=== PATIENT | female | born 1980 | race Caucasian/White ===

== ENCOUNTER 2017-01-22 11:16 | Emergency (ER) | payer MEDICARE, MEDICAID ==
[~2017-01-22] VITALS: Ht 172.7 cm; Wt 62.7 kg
[~2017-01-22 11:16] MED LIST: BUPR150T6 PO; FLUD0.1T PO; NADO20TA PO; NORE-101 PO
[2017-01-22 11:21] VITALS: BP 112/72; PULSE 75; RESP 15; O2SAT 97
[2017-01-22] MEDS ORDERED: 0.9% Sodium Chloride 1,000 ML IV ONE (11:33)
--- NOTE | 2017-01-22 11:33 | ED.REPORT ---
HPI-Neurologic Deficit Date of Service January 22, 2017 ED Provider: The patient is a 36 year old female with history of POTS, neuroleptic malignant syndrome, prior brain surgeries, and atrial fibrillation s/p cardiac ablations, who was brought to the emergency department by her mother for stroke-like symptoms. The patient spoke to her mother at 0930 today and was normal. At 1030 she noticed pressure behind her right eye that started to move down on the right side of her face with associated numbness. She then noticed numbness to the entire right-side of her body. Her mother reports the patients speech is slurred more than normal. Nursing Notes Stated Complaint: RIGHT SIDE NUMBNESS Chief Complaint: Neuro Symptoms/ Deficits Nursing Notes Reviewed: Yes Allergies: Coded Allergies: adhesive tape (Verified Allergy, Unknown, 01/22/17) metoclopramide (Verified Allergy, Unknown, 01/22/17) Scheduled Bupropion HCl (Bupropion-XL) 150 Mg Tab.er.24h 150 MG PO BID Lamotrigine ER (Lamotrigine ER) Unknown Strength Tab.er.24 Unknown Dose PO DAILY Noreth A-Et Estra/Fe Fumarate (Loestrin Fe 1.5-30 Tablet) 1 Each Tablet 1 EACH PO DAILY Propranolol ER (Propranolol ER) Unknown Strength Cap.sa.24h Unknown Dose PO BID General Time Seen by Provider: 11:30 Chief Complaint Other (numbness on the right side) Hx Obtained From: Patient, Other family... Arrived By: Walk-in Sudden in Onset?: Yes Onset Occurred: 1 - 4 hours ago (1030) Symptom Duration: Waxes and wanes Progression Since Onset: Constant Location: : Head Quality: Pressure Severity: Current: Mild Severity: Maximum: Mild Recent Healthcare: No recent doctor visit, No recent hospitalization Similar Sx Previous: No Risk Factors TPA Administration/Criteria Stroke Thrombolytic Therapy : TPA Considered: Yes Neurologist Contacted: At bedside, Yes Disc Risk/Benefit/Alternatives: Yes Consent Obtained: Patient Intensive Monitoring Performed: Yes TPA Administered Intravenously: Yes Complications Encountered: No Inclusion Criteria: Dx acute ischemic CVA, Measurable neuro deficit, Onset < 3hr before Tx, 18 years or older NIH Stroke Scale Level of Consciousness: Alert and responsive (0) Ask Month & Age: Both questions right (0) Open/Close Eyes/Hand Materials Management Clerk: Performs both tasks (0) Horizontal EO Movements: None (0) Visual Leyva: No visual loss (0) Facial Palsy: Normal symmetry (0) Right Arm Motor Drift (10s): No drift 10 sec (0) Left Arm Motor Drift (10s): No drift 10 sec (0) Right Leg Motor Drift (5s): No drift 5 sec (0) Left Leg Motor Drift (5s): No drift 5 sec (0) Limb Ataxia FNF/Heel-Rodriguez: Ataxia in 1 limb (1) (right arm) Sensation (Arms/Legs/Face): Pinprick less sharp (1) Language Aphasia: No aphasia, normal (0) Dysarthria: Slurring intelligible (1) Extinction/Inattention: No exctinct/inattent (0) NIHSS Score: 3 Time NIHSS Performed: 11:38 Date NIHSS Performed: January 22, 2017 Past Medical History Past Medical History Notes: Been seen at [facility] Past Medical History Hx of syncope "Spongy tissue in brain" Myclonus Essential tremor "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" Dysautonomia - POTS Dysarthria Neuroleptic malignant syndrome PT reports hx of atrial fibrillation s/p ablation Past Surgical History Brain surgery x2 for tremors and spasmodic movement Cardiac ablation x 2 Abdominal surgery to remove scar tissue Family History Noncontributory Smoking History Never Smoker Social History Alcohol Use: Denies alcohol use Drug Use: THC Other Social History: Good social support, Local resident Ambulatory Status Independent Review of Systems Eyes: Reports: Eye pain right Neurologic: Reports: Headache, Numbness, Slurred speech Complete sys rev & neg: except as marked. Physical Exam Initial Vital Signs Vital Signs (First) Date Time Temp Pulse Resp B/P Pulse Ox O2 Delivery O2 Flow Rate FiO2 01/22/17 11:21 36.6 75 15 112/72 97 Room Air Initial VS: Reviewed ENT: Mucous membranes moist, Conjunctiva normal, No scleral icterus Neck: Supple, Non-tender, Full range of motion Abdomen / GI: Soft, Non-tender, No guarding, No rebound, No distention Extremities: Vascular intact, Neuro intact Skin: Warm, Dry, No cyanosis Psychiatric: Mood/affect normal, Behavior normal, Normal thought content General/Constitutional: Awake, Alert Head / Eyes: Atraumatic, Normocephalic, PERRL, EOMI Respiratory / Chest: Atraumatic, Breath sounds NL, Breath sounds = bilat, No respiratory distress, No rales, No rhonchi, No wheezing Cardiovascular: Heart rate NL, Regular rhythm, Heart sounds NL, No gallop, No murmurs, No rubs, Peripheral circulation NL Neurologic: Oriented X3 Speech: Positive: Slurred See NIH stroke scale above, score: 3 for slurred speech, right arm ataxia, and paraesthesia. Interpretation & Diagnostics PROCEDURE: CT ANGIO HEAD AND NECK IMPRESSION: 1. No evidence of intracranial hemorrhage. 2. Normal intracranial vasculature. 3. Normal cervical vasculature, both bifurcations appear normal. Both vertebral arteries are patent and combine to form a normal appearing basilar artery. Dictated by: Santana Rivas M.D. on 01/22/2017 at 13:05 Lab Results Interpretation Result Diagram: 01/22/17 1145 01/22/17 1145 Test 01/22/17 11:45 White Blood Count 5.3th/mm3 (3.8-10.1) Red Blood Count 4.24mil/mm3 (3.90-5.20) Hemoglobin 12.3g/dL (12.0-15.6) Hematocrit 38.0% (35.0-46.0) Mean Corpuscular Volume 89.6fL (81-100) Mean Corpuscular Hemoglobin 29.0pg (27.0-35.0) Mean Corpuscular Hemoglobin Concent 32.4% (32.0-37.0) Red Cell Distribution Width 13.0% (12.3-15.4) Platelet Count 251bil/L (150-400) Neutrophils (%) (Auto) 45.0% (40-74) Lymphocytes (%) (Auto) 42.8% (14-46) Monocytes (%) (Auto) 9.7% (4-12) Eosinophils (%) (Auto) 1.7% (0-5) Basophils (%) (Auto) 0.6% (0-3) Prothrombin Time 10.3sec (8.1-12.5) Prothromb Time International Ratio 0.96ratio Activated Partial Thromboplast Time 26.8sec (22.8-33.0) Sodium Level 140mEq/L (134-144) Potassium Level 4.6mEq/L (3.5-5.2) Chloride Level 103mEq/L (97-108) Carbon Dioxide Level 25mmol/L (18-29) Blood Urea Nitrogen 21mg/dL (6-20) Creatinine 0.92mg/dL (0.57-1.00) Estimat Glomerular Filtration Rate 100mL/min (>59) Glucose Level 94mg/dL (60-99) Calcium Level 9.4mg/dL (8.5-10.1) Total Bilirubin 0.5mg/dL (0.0-1.2) Aspartate Amino Transf (AST/SGOT) 12U/L (0-50) Alanine Aminotransferase (ALT/SGPT) 11U/L (0-32) Alkaline Phosphatase 36U/L (25-150) Troponin T < 0.010ug/L (0.0-0.011) Total Protein 6.4g/dL (6.4-8.4) Albumin 4.1g/dL (3.4-5.0) Hold Sierra Top Tube Received (Received) ECG Interpretation ECG Interpretation: Sinus rhythm with a rate of 71 Time: 11:51 Interpreted by: ED physician X-Ray Chest Interpretation Chest Xray Interpretation: IMPRESSION: Stable chest. No acute cardiopulmonary process is evident. Dictated by: Tung Barba M.D. on 01/22/2017 at 11:14 Interpretation / Wet Read by: Interpret - Radiologist CT Head Interpretation IMPRESSION: 1. No intracranial hemorrhage. No acute intracranial abnormality. This study fulfills neurological imaging criteria for inclusion or exclusion of acute stroke therapies based on available published neurological imaging guidelines. Dictated by: Santana Rivas M.D. on 01/22/2017 at 11:46 Study: Head CT no contrast Interpretation / Wet Read by: Interpret - Radiologist Re-Eval/Medical Decision Med Decision/Clinical Course Patient presents with slurred speech ataxia in the right arm and paresthesia of the right side of her body of acute onset. Certainly this could represent stroke or a stroke mimic. Her initial NIH stroke scale was 3. Given her history of gamma knife, [facility] was consulted and states that that is not a contraindication to TPA and recommended TPA if the patient was agreeable.. After lab evaluation it is clear there is no contraindication identified to TPA. Risks and benefits were discussed with the patient at length who agreed to IV TPA. IV TPA was given. She did not have any identifiable adverse event while in the ER. Ultimately she will be transferred to [facility] as we do not have on-call neurology at our hospital today. Source of Hx: Old records, Family Re-Evaluation/Progress #1: Time of Eval: 11:56 Re-Evaluation/Progress Note: Discussed neurology consult and head CT results, and plan for TPA with the patient and her mother. Went through TPA exclusions. Re-Evaluation/Progress #2: Time of Eval: 12:15 Re-Evaluation/Progress Note: The patient is stable. Re-Evaluation/Progress #3: Time of Eval: 12:56 Re-Evaluation/Progress Note: Rechecked the patient. She is resting comfortably. Re-Evaluation/Progress #4: Time of Eval: 12:59 Re-Evaluation/Progress Note: The patient complains of a sudden increase of pain in her right-sided headache. She now describes the pain as "sharp" and rates it at a 7/10. Re-Evaluation/Progress #5: Time of Eval: 13:30 Re-Evaluation/Progress Note: The patient is aware of plan for transfer to [facility]. Re-Evaluation/Progress #6: Time of Eval: 14:19 Re-Evaluation/Progress Note: Rechecked the patient. Let her know she is accepted at [facility] but we will need to wait for bed assignment prior to transport. Consultation #1: Consulted With: Neurology Call Returned at: 11:48 Note: Spoke to [facility] about the patient's case. Dr. Shemar Montoya recommend administering TPA, don't delay pending labs, go ahead if the patient agrees. Consultation #2: Referral / Consult Name: Casper Cheema MD Consulted With: Neurology Call Returned at: 12:32 Note: He recommends transferring her to [facility]. Consultation #3: Consulted With: Neurology Call Returned at: 14:02 Note: Spoke to Dr. Ronal Faria about the patient's case and need for transfer. Consultation #4: Call Returned at: 14:16 Note: Spoke to Dr. Montoya, neurologist from [facility]. He accepts the patient for transfer. He will call industrial sociologist. We will need to arrange transport. Counseled Regarding: Diagnosis, Lab results, Need for transfer Discharge & Departure Impression: Primary Impression: CVA (cerebral vascular accident) CVA mechanism: unspecified Qualified Code: I63.9 - Cerebral infarction, unspecified Disposition: Transfer, Acute Care Facility Receiving Hospital: [facility] Transfer Accepted: Yes Transfer Accepted at: 14:17 Transfer Reason: Higher level of care Spoke with: Attending physician (Dr. Montoya) Patient Status: Stable, Stable for transfer Patient Informed: Yes Discharge Condition All VS Reviewed: Yes Condition: Stable Referrals: Bobby Green MD (PCP) Crit Care Except Billable Proc Time Spent: 75-104 minutes Services Performed: Patient management by me, Time spent at bedside, Reviewing test results, Reviewing imaging, Discussing patient care Critical Care Notes: See MDMTahira Mehtaibe Attestation Portions of this note were transcribed by Bhumi Turner. I, Dr. Tillman personally performed the history, physical exam and medical decision-making; I reviewed and confirmed the accuracy of the information in the transcribed note. Signed by: Dolores Webb, 01/22/2017 at 1430. copies to: Bobby Green MD, Timothy S DO January 22, 2017 11:33 Bhumi Turner January 22, 2017 11:43
--- NOTE | 2017-01-22 11:52 | DRSVH ---
PROCEDURE: CT BRAIN (TPA) ([id number]) INDICATIONS: Stroke TECHNIQUE: Noncontrast 4.5 mm thick angled axial sections acquired from the foramen magnum to the vertex, with c oronal reformats. COMPARISON: CT brain 08/18/2016, 03/27/2010 FINDINGS: Image quality: Excellent. CSF spaces: Basal cisterns are patent. No extra-axial fluid collections. Ventricles are normal in size and shape. Brain: No midline shift. No intracranial masses or hemorrhage. No secondary signs of ischemic insul t. Harper-white matter interface is normal. Bilateral parathalmic hypodensities are unchanged. Skull and face: Calvarium and visualized facial bones are intact, without suspicious lesions. Sinuses: Visualized sinuses and mastoids are clear. IMPRESSION: 1. No intracranial hemorrhage. No acute intracranial abnormality. This study fulfills neurological imaging criteria for inclusion or exclusion of acute stroke therapie s based on available published neurological imaging guidelines. Dictated by: Santana Rivas M.D. on 01/22/2017 at 11:46 Approved by: Santana Rivas M.D. on 01/22/2017 at 11:50
[2017-01-22 11:54] LABS: BASOPHILS % (AUTO) 0.6 % (0-3); EOSINOPHILS % (AUTO) 1.7 % (0-5); MONOCYTES % (AUTO) 9.7 % (4-12); Mean Corpuscular Volume 89.6 fL (81-100); Platelet Count 251 bil/L (150-400)
[2017-01-22] MEDS ORDERED: WATER STERILE FOR IV ONE (12:00)
[2017-01-22] MEDS ORDERED: ALTEPLASE IV ONE ×2 (12:00)
[2017-01-22] MEDS ORDERED: Alteplase Dose Per Pharmacist XX ONE (12:05)
[2017-01-22 12:09] LABS: INR 0.96 ratio
--- NOTE | 2017-01-22 12:16 | DRSVH ---
PROCEDURE: X-RAY CHEST ONE VIEW, PORTABLE ([id number]) INDICATIONS: neuro deficits TECHNIQUE: One view of the chest was acquired. COMPARISON: [facility], CR, XR CHEST 1VW (PORTABLE), 09/05/2016, 17:25. FINDINGS: Surgical changes and devices: None. Lungs and pleura: No pleural effusions or pneumothorax. Lungs are clear. Mediastinum: Mediastinal contours appear normal. Heart size is normal. Bones and chest wall: No suspicious bony lesions. Overlying soft tissues appear unremarkable. IMPRESSION: Stable chest. No acute cardiopulmonary process is evident. Dictated by: Tung Barba M.D. on 01/22/2017 at 11:14 Approved by: Tung Barba M.D. on 01/22/2017 at 11:15
[2017-01-22 12:27] LABS: TROPONIN T < 0.010 ug/L (0.0-0.011)
--- NOTE | 2017-01-22 13:14 | DRSVH ---
PROCEDURE: CT ANGIO HEAD AND NECK (P) INDICATIONS: Stroke - tPA Infusing TECHNIQUE: Pre-contrast 4.5 mm thick sections acquired from the foramen magnum to the vertex. After the adminis tration of intravenous contrast, 1 mm thick sections acquired from the aortic arch through the [place]. Post-contrast 4.5 mm thick sections then re-acquired from the foramen magnum to the vert ex. 3-dimensional qnvpsbq-[id number]-welxtoxcgu (MIP) and/or volume rendering reformats were acquired of the central intracranial vasculature and neck separately. For radiation dose reduction, the foll owing was used: automated exposure control, adjustment of mA and/or kV according to patient size. COMPARISON: None. FINDINGS: Image quality: Excellent. BRAIN: CSF spaces: Ventricles are normal in size and shape. Basal cisterns are patent. No extra-axial flu id collections. Brain: No midline shift. No intracranial bleeds or masses. Harper-white matter interface appears int act. Skull and face: Calvarium and facial bones appear intact, without suspicious lesions. Orbits appear normal. Sinuses: Sinuses and mastoids are clear. HEAD CT ANGIOGRAPHY: Anterior circulation: Intracranial internal carotid arteries are normal in size and flow. The flow within the paired anterior cerebral arteries is normal and symmetric. The flow within the middle cer ebral arteries is normal and symmetric. The anterior communicating artery is seen. No aneurysms are seen. Posterior circulation: Visualized portions of the vertebral arteries demonstrate normal caliber, and join to form a normal appearing basilar artery. Flow within the posterior cerebral arteries is norm al and symmetric. No aneurysms are seen. NECK CT ANGIOGRAPHY: Carotid system: The great vessels demonstrate a conventional anatomy as they arise from the aortic a rch. The origins of the common carotid arteries appear patent. The common carotid arteries demonstr ate normal caliber and courses. The bifurcation regions are both widely patent. The internal caroti d arteries demonstrate normal calibers and courses. Posterior circulation: The origins of the vertebral arteries both appear widely patent. The more ridley perior extracranial portions of both vertebral arteries also demonstrate normal courses and calibers. They join to form a normal appearing basilar artery. Soft tissues: Visualized neck soft tissues demonstrate no suspicious abnormalities. Bones: No suspicious bony lesions. Visualized cervical spine appears normally aligned. IMPRESSION: 1. No evidence of intracranial hemorrhage. 2. Normal intracranial vasculature. 3. Normal cervical vasculature, both bifurcations appear normal. Both vertebral arteries are patent a nd combine to form a normal appearing basilar artery. Dictated by: Santana Rivas M.D. on 01/22/2017 at 13:05 Approved by: Santana Rivas M.D. on 01/22/2017 at 13:12
[2017-01-22] MEDS ORDERED: LAMO25TA72 PO (13:32)
[2017-01-22] MEDS ORDERED: PROP60CA2 PO (13:32)
[2017-01-22 14:01] LABS: APPEARANCE,URINE HAZY (CLEAR,HAZY); COLOR,URINE YELLOW (YELLOW); OCCULT BLOOD,URINE NEGATIVE (NEGATIVE); PH,URINE 6.5 (5.0-8.0); UROBILINOGEN,URINE NORMAL (NORMAL)
--- NOTE | 2017-01-22 15:38 | NUR ---
Evaluation completed. Please go to "Notes" then click on "Assessments and Notes" (bottom left corner of screen). Then select appropriate discipline tab on top of screen.
[2017-01-22 16:47] VITALS: BP 114/63; PULSE 71; RESP 17; O2SAT 100
== END 2017-01-22 16:56 | disposition short-term general hospital (02) ==
LOC: SED 11:16 → UNDOADMIN 12:45 → PCC 12:45
DX: I63.9 Cerebral infarction, unspecified (principal); Z79.899 Other long term (current) drug therapy; Z88.8 Allergy status to other drugs, medicaments and biological substances
CPT/HCPCS: 36415; 37195; 70450; 70496; 70498; 71010; 80053; 81000; 81025; 84484; 85025; 85610; 85730; 87086; 92610; 93005; 96360; 99291; 99292; J2997; J7030; Q9967

== ENCOUNTER 2017-01-26 17:32 | Emergency (ER) | payer MEDICARE, MEDICAID ==
[~2017-01-26] VITALS: Ht 172.7 cm; Wt 65.9 kg
[~2017-01-26 17:32] MED LIST changes: -FLUD0.1T PO; +LAMO25TA72 PO; -NADO20TA PO; +PROP60CA2 PO
[2017-01-26 17:34] VITALS: BP 111/67; PULSE 102; RESP 18; O2SAT 100
--- NOTE | 2017-01-26 18:06 | ED.REPORT ---
HPI-General Illness Date of Service January 26, 2017 ED Provider: Dr. Quevedo Pt is a 36 y/o female w/ a hx of POTS, neuroleptic malignant syndrome, A-fib s/ p ablation, prior "unsuccessful brain surgery for chronic tremor", presenting to the ED from c/o GARCIA onset today. She c/o associated pressure behind the R eye and sudden onset right hip, knee, and ankle pain. She was seen on January 22 of this year and received TPA after presenting with R sided neuro deficits. She went transferred to [facility] ICU at which time one doctor told her "everything was fine" but another told her they saw a "larson" on her MRI. She was discharged 2 days ago and has been resting in bed since then. She denies rash, fever, extremity swelling. Nursing Notes Stated Complaint: POSSIBLE CVA Chief Complaint: Neuro Symptoms/ Deficits Nursing Notes Reviewed: Yes Allergies: Coded Allergies: adhesive tape (Verified Allergy, Unknown, 01/22/17) metoclopramide (Verified Allergy, Unknown, 01/22/17) Scheduled Bupropion HCl (Bupropion-XL) 150 Mg Tab.er.24h 150 MG PO BID Lamotrigine ER (Lamotrigine ER) Unknown Strength Tab.er.24 Unknown Dose PO DAILY Noreth A-Et Estra/Fe Fumarate (Loestrin Fe 1.5-30 Tablet) 1 Each Tablet 1 EACH PO DAILY Propranolol ER (Propranolol ER) Unknown Strength Cap.sa.24h Unknown Dose PO BID General Time Seen by MD: 18:05 Chief Complaint Headache Hx Obtained From: Patient, EMS Arrived By: Ambulance Sudden in Onset?: Yes Onset Occurred: 1 - 4 hours ago Symptom Duration: Since onset Location: : Head Quality: Aching Severity: Current: Moderate Severity: Maximum: Moderate Past Medical History Past Medical History Notes: Been seen at [facility] Past Medical History Hx of syncope "Spongy tissue in brain" Cortical myclonus Drug resistant essential tremor "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" Dysautonomia - POTS Dysarthria Neuroleptic malignant syndrome PT reports hx of atrial fibrillation s/p ablation Past Surgical History Brain surgery x2 for tremors and spasmodic movement Cardiac ablation x 2 Abdominal surgery to remove scar tissue Family History Noncontributory Smoking History Never Smoker Social History Alcohol Use: Denies alcohol use Drug Use: THC Other Social History: Good social support, Local resident Ambulatory Status Independent Review of Systems Full Review of Systems Constitutional: Denies: Chills, Fever Respiratory: Denies: Non-productive cough, Shortness of breath Cardiovascular: Denies: Chest pain GI: Denies: Abdominal pain Musculoskeletal: Reports: Extremity pain, Joint pain, Denies: Extremity swelling Skin: Denies Rash Neurologic: Reports: Headache, Shaking (chronic), Denies: Focal weakness, Numbness, Slurred speech Complete sys rev & neg: except as marked. Physical Exam Vital Signs Vital Signs Date Time Temp Pulse Resp B/P Pulse Ox O2 Delivery O2 Flow Rate FiO2 01/26/17 20:11 105 20 118/67 99 Room Air 01/26/17 17:34 37.6 102 18 111/67 100 Room Air Initial VS: Reviewed, Vital signs abnormal Head / Eyes: Atraumatic, Normocephalic, PERRL ENT: Mucous membranes moist, Conjunctiva normal, No scleral icterus Neck: Supple, Full range of motion Respiratory: Breath sounds normal, Clear to auscultation, No respiratory distress Cardiovascular: Regular rate & rhythm, Heart sounds normal, Intact distal pulses Abdomen / GI: Soft, Non-tender, No guarding, No rebound, No distention Skin: Warm, Dry, No cyanosis Psychiatric: Mood/affect normal, Behavior normal, Normal thought content General/Constitutional: Awake, Alert, No acute distress, Cooperative, Not toxic appearing Lower Extremity / Pelvis / MS: Atraumatic, Full range of motion, No erythema, No deformity, Neurologic intact, Vascular intact, No compartment syndrome Mild tenderness overlyign the right knee Neurologic: Oriented X3, Speech NL, No motor deficits, No sensory deficits, Cerebellar NL Coarse resting tremor - chronic No pronator drift Interpretation & Diagnostics Lab Results Interpretation Result Diagram: 01/26/17 1745 01/26/17 1745 Test 01/26/17 17:30 01/26/17 17:45 Hold Purple Top Tube Received (Received) Hold Blue Top Tube Received (Received) Hold Noonan Top Tube Received (Received) White Blood Count 6.5th/mm3 (3.8-10.1) Red Blood Count 4.96mil/mm3 (3.90-5.20) Hemoglobin 14.3g/dL (12.0-15.6) Hematocrit 44.1% (35.0-46.0) Mean Corpuscular Volume 88.9fL (81-100) Mean Corpuscular Hemoglobin 28.8pg (27.0-35.0) Mean Corpuscular Hemoglobin Concent 32.4% (32.0-37.0) Red Cell Distribution Width 12.9% (12.3-15.4) Platelet Count 289bil/L (150-400) Neutrophils (%) (Auto) 50.9% (40-74) Lymphocytes (%) (Auto) 38.5% (14-46) Monocytes (%) (Auto) 8.8% (4-12) Eosinophils (%) (Auto) 1.1% (0-5) Basophils (%) (Auto) 0.5% (0-3) D-Dimer < 0.50mg/L FEU (<0.50) Sodium Level 141mEq/L (134-144) Potassium Level 3.8mEq/L (3.5-5.2) Chloride Level 100mEq/L (97-108) Carbon Dioxide Level 23mmol/L (18-29) Blood Urea Nitrogen 18mg/dL (6-20) Creatinine 0.93mg/dL (0.57-1.00) Estimat Glomerular Filtration Rate 99mL/min (>59) Glucose Level 91mg/dL (60-99) Calcium Level 9.9mg/dL (8.5-10.1) Total Bilirubin 0.7mg/dL (0.0-1.2) Aspartate Amino Transf (AST/SGOT) 17U/L (0-50) Alanine Aminotransferase (ALT/SGPT) 13U/L (0-32) Alkaline Phosphatase 45U/L (25-150) Total Protein 7.7g/dL (6.4-8.4) Albumin 4.7g/dL (3.4-5.0) Human Chorionic Gonadotropin, Qual Negative (Negative) ECG Interpretation ECG Interpretation: Sinus tachycardia rate 101 Time: 19:20 Interpreted by: ED physician Normal ECG Interpretation: Normal sinus rhythm, No acute ischemic changes, Normal QRS, Normal axis, Normal intervals, No change from prior ECGs, Adequate tracing X-Ray Interpretation Xray Interpretation: IMPRESSION: No acute fracture. No osseous lesion. If clinical suspicion and/or symptoms persist, further assessment with repeat plainfilms, or advanced imaging (e.g., CT, MRI, or bone scan) may be helpful for further assessment. Dictated by: Surinder Araiza M.D. on 01/26/2017 at 19:42 Approved by: Surinder Araiza M.D. on 01/26/2017 at 19:42 Study Performed: 3 view X-Ray Ordered: Knee right Interpretation / Wet Read by: Interpret - Radiologist CT Head Interpretation IMPRESSION: 1. No acute intracranial abnormality. 2. Small chronic bilateral thalamic infarcts. Dictated by: Surinder Araiza M.D. on 01/26/2017 at 19:46 Approved by: Surinder Araiza M.D. on 01/26/2017 at 19:46 Study: Head CT no contrast Interpretation / Wet Read by: Interpret - Radiologist Re-Eval/Medical Decision Med Decision/Clinical Course Pt is a 36 y/o female w/ a hx of POTS, neuroleptic malignant syndrome, A-fib s/ p ablation, prior "unsuccessful brain surgery for chronic tremor", presenting to the ED from c/o GARCIA onset today. She c/o associated pressure behind the R eye and sudden onset right hip, knee, and ankle pain. She was seen on January 22 of this year and received TPA after presenting with R sided neuro deficits. She went transferred to [facility] ICU at which time one doctor told her "everything was fine" but another told her they saw a "larson" on her MRI. She was discharged 2 days ago and has been resting in bed since then. She denies rash, fever, extremity swelling. Here in the emergency department the patient is afebrile hemodynamically stable. She has a coarse resting tremor though her examination is otherwise essentially unremarkable. She has no lateralizing neurologic findings. Labs notable as below: CBC: unremarkable CMP: unremarkable D-dimer negative negative Consultations presentation remains unclear. Given recent ministries should have TPA considered the possibility of possible delayed intracranial hemorrhage. Therefore obtained a CT scan of the patient's head which demonstrated no acute process. Plain films of the right detail demonstrated no fracture or dislocation. The patient was neurovascularly intact in the affected extremity without any evidence of trauma. Given recent hospitalization I did consider possibility of DVT however there was no clinical evidence thereof. D-dimer is negative and therefore reassuring against DVT. I do not feel that further workup is indicated. Patient was observed here in the emergency department for a period of time and reported that her symptoms had completely resolved. The cause of her presentation remains unclear however I see no evidence of acutely concerning process. The patient states that she feels better and would like to be discharged. I feel that it is reasonable for her to go home and follow-up with her primary care physician. Prior to discharge follow-up and return precautions were reviewed in detail with the patient who verbalized understanding and agreement with the plan. The patient was discharged in stable condition. Time of Eval: 20:00 Re-Evaluation/Progress Note: Pt rechecked. Informed pt of plan for treatment. Pt understands and agrees with plan for treatment. F/U instructions and RTER warnings given. All questions addressed. Counseled Regarding: Diagnosis, Lab results, Need for follow-up, When/why to return to ED Discharge & Departure Primary Impression: Headache Headache type: unspecified Headache chronicity pattern: acute headache Intractability: not intractable Qualified Code: R51 - Headache Additional Impressions: Right leg pain Resting tremor Status post administration of tPA (rtPA) in a different facility within the last 24 hours prior to admission to current facility Disposition: Home Discharge Condition All VS Reviewed: Yes Condition: Stable Patient Instructions: Acute Headache (GEN) Additional Instructions: Thank you for seeking care at the emergency room. It is difficult for us to make definitive diagnoses in the ED but we believe that you are experiencing headache of uncertain cause. Our primary goal today in the ED was to evaluate you for any life-threatening conditions. Your evaluation was reassuring. The labs, head CT, right knee x-ray , were all normal. You should follow-up with your primary doctor in the next week. You should return to the ED immediately if you develop fevers, vomiting, shortness of breath, chest pain, lightheadedness, one-sided numbness or weakness , vision changes, speech changes, severe headache, or any other concerning signs or symptoms. Thank you for letting us partake in your care today. Referrals: Bobby Green MD (PCP) Dolores Attestation Portions of this note were transcribed by Seamus Rivero. I, Dr. Quevedo personally performed the history, physical exam and medical decision-making; I reviewed and confirmed the accuracy of the information in the transcribed note. Signed by Dolores Ramos, 01/26/17 [id number] copies to: Bobby Green MD, Beck O MD January 26, 2017 18:06 SEAMUS RIVERO January 26, 2017 18:13
[2017-01-26 19:06] LABS: BASOPHILS % (AUTO) 0.5 % (0-3); EOSINOPHILS % (AUTO) 1.1 % (0-5); MONOCYTES % (AUTO) 8.8 % (4-12); Mean Corpuscular Hemoglobin 28.8 pg (27.0-35.0); Mean Corpuscular Volume 88.9 fL (81-100); NEUTROPHILS % (AUTO) 50.9 % (40-74); Platelet Count 289 bil/L (150-400)
--- NOTE | 2017-01-26 19:44 | DRSVH ---
PROCEDURE: X-RAY RIGHT KNEE, THREE VIEWS ([id number]) INDICATIONS: pain TECHNIQUE: 3 views of the knee were acquired. COMPARISON: None. FINDINGS: Bones: No fractures or dislocations. No suspicious bony lesions. Soft tissues: No joint effusion. No suspicious soft tissue calcifications. IMPRESSION: No acute fracture. No osseous lesion. If clinical suspicion and/or symptoms persist, fur ther assessment with repeat plainfilms, or advanced imaging (e.g., CT, MRI, or bone scan) may be help ful for further assessment. Dictated by: Surinder Araiza M.D. on 01/26/2017 at 19:42 Approved by: Surinder Araiza M.D. on 01/26/2017 at 19:42
--- NOTE | 2017-01-26 19:48 | DRSVH ---
PROCEDURE: CT BRAIN WITHOUT CONTRAST ([id number]) INDICATIONS: GARCIA, recent TPA TECHNIQUE: Noncontrast 4.5 mm thick angled axial sections acquired from the foramen magnum to the vertex, with c oronal reformats. COMPARISON: [facility], CT, BRAIN (TPA), 01/22/2017, 11:36. FINDINGS: Image quality: Excellent. CSF spaces: Basal cisterns are patent. No extra-axial fluid collections. Ventricles are normal in size and shape. Brain: No midline shift. Small chronic bilateral thalamic infarcts are unchanged. No intracranial ma sses or hemorrhage. Harper-white matter interface is normal. Skull and face: Calvarium and visualized facial bones are intact, without suspicious lesions. Sinuses: Visualized sinuses and mastoids are clear. IMPRESSION: 1. No acute intracranial abnormality. 2. Small chronic bilateral thalamic infarcts. Dictated by: Surinder Araiza M.D. on 01/26/2017 at 19:46 Approved by: Surinder Araiza M.D. on 01/26/2017 at 19:46
[2017-01-26 20:11] VITALS: BP 118/67; PULSE 105; RESP 20; O2SAT 99
== END 2017-01-26 20:13 | disposition home or self-care (01) ==
LOC: SED 17:32 → EDBD 17:32 → SED 20:13
DX: R51 Headache (principal); M79.604 Pain in right leg; R25.1 Tremor, unspecified; Z92.82 Status post administration of tPA (rtPA) in a different facility within the last 24 hours prior to admission to current facility; Z88.8 Allergy status to other drugs, medicaments and biological substances; Z91.048 Other nonmedicinal substance allergy status

== ENCOUNTER 2017-05-15 04:54 | Emergency (ER) | payer MEDICAID, MEDICARE ==
[~2017-05-15] VITALS: Ht 175.3 cm; Wt 58.2 kg
[2017-05-15 04:58] VITALS: BP_SYST 119; BP_SYST 19; BP_DIAS 78; PULSE 136; RESP 24; O2SAT 100
[2017-05-15] MEDS ORDERED: 0.9% Sodium Chloride 1,000 ML IV ONE (05:04)
[2017-05-15] MEDS ORDERED: Ondansetron 2 mg/mL 2 mL Inj IVPUSH ONE (05:05)
--- NOTE | 2017-05-15 05:09 | ED.REPORT ---
HPI-General Illness Date of Service May 15, 2017 ED Provider: Caden Garcias MD A 36 year old female with a history of cortical myoclonus, neuroleptic malignant syndrome, SVT and atrial fibrillation s/p ablation x2 presents to the ED complaining of vomiting. The pt has been experiencing nausea and vomiting for two hours, though she denies exposure to others with similar symptoms or any other known causes for her symptoms. The pt was instructed to come to the ED if she vomited for over an hour due to her SVT. Nursing Notes Stated Complaint: VOMITING Chief Complaint: Female Abdominal Pain Nursing Notes Reviewed: Yes Allergies: Coded Allergies: adhesive tape (Verified Allergy, Unknown, 05/15/17) metoclopramide (Verified Allergy, Unknown, 05/15/17) Scheduled Bupropion HCl (Bupropion-XL) 150 Mg Tab.er.24h 150 MG PO BID Lamotrigine ER (Lamotrigine ER) Unknown Strength Tab.er.24 Unknown Dose PO DAILY Noreth A-Et Estra/Fe Fumarate (Loestrin Fe 1.5-30 Tablet) 1 Each Tablet 1 EACH PO DAILY Propranolol ER (Propranolol ER) Unknown Strength Cap.sa.24h Unknown Dose PO BID General Time Seen by MD: 05:08 Chief Complaint Vomiting Hx Obtained From: Patient Arrived By: Walk-in Sudden in Onset?: No Symptom Duration: Since onset Recent Healthcare: Recent doctor visit Similar Sx Previous: No Past Medical History Past Medical History Notes: Been seen at [facility] Past Medical History Hx of syncope "Spongy tissue in brain" Cortical 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" Essential tremors since age 6 Dysautonomia - POTS Dysarthria Neuroleptic malignant syndrome Pt reports hx of atrial fibrillation s/p ablation Past Surgical History Brain surgery x2 for tremors and spasmodic movement Cardiac ablation x 2 Abdominal surgery to remove scar tissue Family History Noncontributory Smoking History Never Smoker Social History Alcohol Use: Denies alcohol use Drug Use: THC Other Social History: Good social support, Local resident Ambulatory Status Independent Review of Systems Full Review of Systems Respiratory: Denies: Non-productive cough, Shortness of breath Cardiovascular: Denies: Chest pain GI: Reports: Nausea, Vomiting Musculoskeletal: Denies: Back pain, Neck pain Skin: Denies Rash Complete sys rev & neg: except as marked. Physical Exam Vital Signs Vital Signs Date Time Temp Pulse Resp B/P Pulse Ox O2 Delivery O2 Flow Rate FiO2 05/15/17 04:58 37.3 136 24 119/78 100 Room Air Initial VS: Reviewed General/Constitutional: Awake, Alert tremulous not actively vomiting Head / Eyes: Atraumatic, Normocephalic, PERRL, EOMI ENT: Atraumatic, Airway patent, Mucous membranes moist Neck: Atraumatic, Supple, Full range of motion Respiratory / Chest: Atraumatic, Breath sounds NL, Breath sounds = bilat, No respiratory distress Cardiovascular: Regular rhythm, Heart sounds NL Heart Rate / Rhythm: Positive: Tachycardia Abdomen: Atraumatic, Soft, Non-tender Back: Atraumatic, Full range of motion Upper Extremities Upper Extremity / MS: Atraumatic, Full range of motion Lower Extremity / Pelvis / MS: Atraumatic, Full range of motion Skin: Atraumatic, Color NL, No rash, Warm, Dry Neurologic: Oriented X3, Speech NL, No motor deficits, No sensory deficits Psychiatric: Affect NL, Mood NL Interpretation & Diagnostics Lab Results Interpretation Result Diagram: 05/15/17 0520 05/15/17 0520 Test 05/15/17 05:20 05/15/17 05:42 White Blood Count 6.3th/mm3 (3.8-10.1) Red Blood Count 4.47mil/mm3 (3.90-5.20) Hemoglobin 13.3g/dL (12.0-15.6) Hematocrit 40.6% (35.0-46.0) Mean Corpuscular Volume 90.8fL (81-100) Mean Corpuscular Hemoglobin 29.8pg (27.0-35.0) Mean Corpuscular Hemoglobin Concent 32.8% (32.0-37.0) Red Cell Distribution Width 12.4% (12.3-15.4) Platelet Count 288bil/L (150-400) Neutrophils (%) (Auto) 54.5% (40-74) Lymphocytes (%) (Auto) 35.8% (14-46) Monocytes (%) (Auto) 8.8% (4-12) Eosinophils (%) (Auto) 0.5% (0-5) Basophils (%) (Auto) 0.2% (0-3) Prothrombin Time 10.3sec (8.1-12.5) Prothromb Time International Ratio 0.96ratio Sodium Level 141mEq/L (134-144) Potassium Level 3.3mEq/L (3.5-5.2) Chloride Level 105mEq/L (97-108) Carbon Dioxide Level 21mmol/L (18-29) Blood Urea Nitrogen 18mg/dL (6-20) Creatinine 0.94mg/dL (0.57-1.00) Estimat Glomerular Filtration Rate 98mL/min (>59) Glucose Level 104mg/dL (60-99) Calcium Level 9.0mg/dL (8.5-10.1) Magnesium Level 2.0mg/dL (1.6-2.6) Total Bilirubin 0.6mg/dL (0.0-1.2) Aspartate Amino Transf (AST/SGOT) 15U/L (0-50) Alanine Aminotransferase (ALT/SGPT) 13U/L (0-32) Alkaline Phosphatase 37U/L (25-150) Total Protein 7.0g/dL (6.4-8.4) Albumin 4.4g/dL (3.4-5.0) Lipase 32U/L (13-60) Lactic Acid Level 1.9mmol/L (0.4-2.0) ECG Interpretation ECG Interpretation: sinus tachycardia with a rate of 111 Time: 05:48 Interpreted by: ED physician Re-Eval/Medical Decision Med Decision/Clinical Course 36-year-old with PSVT and a complicated cardiac history including a stroke, presents with persistent vomiting after two hours. Source of this is not clear. There is a limited number of agents able to be used as she has some allergies and QT prolongation is to be avoided. She is tachycardic initially but definitely sinus tachycardia, and improving with fluids and a single dose of metoprolol. She is due for her by mouth Inderal this morning. Labs are pending at this point and she is transferred at [address] Gladys Solomon Source of Hx: Old records Counseled Regarding: Diagnosis, Lab results Discharge & Departure Shift Change Sign-Out Patient Care Transferred: Yes Discussed Complaint(s): Yes Laboratory Evaluation: Ordered, not yet done Primary Impression: Vomiting Vomiting type: unspecified Vomiting Intractability: non-intractable Nausea presence: with nausea Qualified Code: R11.2 - Nausea with vomiting, unspecified Additional Impressions: Tachycardia Tremor Discharge Condition All VS Reviewed: Yes Condition: Stable Referrals: Bobby Green MD (PCP) Care Transferred to: Dr. Tillman Care Transferred at: 06:00 Scribe Attestation Portions of this note were transcribed by Derik Rodriguez. I, Dr. Garcias personally performed the history, physical exam and medical decision-making; I reviewed and confirmed the accuracy of the information in the transcribed note. copies to: Bobby Green MD, Christopher W MD May 15, 2017 05:09 DERIK RODRIGUEZ May 15, 2017 05:19
[2017-05-15] MEDS ORDERED: MeTOProlol 1 mg/mL 5 mL Inj IVPUSH ONE (05:25)
[2017-05-15 05:31] LABS: BASOPHILS % (AUTO) 0.2 % (0-3); EOSINOPHILS % (AUTO) 0.5 % (0-5); MONOCYTES % (AUTO) 8.8 % (4-12); Mean Corpuscular Hemoglobin 29.8 pg (27.0-35.0); Mean Corpuscular Volume 90.8 fL (81-100); NEUTROPHILS % (AUTO) 54.5 % (40-74); Platelet Count 288 bil/L (150-400)
[2017-05-15 05:52] LABS: INR 0.96 ratio
[2017-05-15] MEDS ORDERED: ONDA4TAB9 PO (06:34)
[2017-05-15 06:37] VITALS: BP 129/69; PULSE 108; RESP 16; O2SAT 100
== END 2017-05-15 06:49 | disposition home or self-care (01) ==
LOC: SED 04:54
DX: R11.2 Nausea with vomiting, unspecified (principal); R00.0 Tachycardia, unspecified; R25.1 Tremor, unspecified; I48.91 Unspecified atrial fibrillation; Z98.890 Other specified postprocedural states; Z88.8 Allergy status to other drugs, medicaments and biological substances; Z91.048 Other nonmedicinal substance allergy status
CPT/HCPCS: 36415; 80053; 83605; 83690; 83735; 85025; 85610; 93005; 96361; 96374; 96375; 99285; J2405; J7030

== ENCOUNTER 2017-05-23 16:22 | Emergency (ER) | payer MEDICARE ==
[~2017-05-23] VITALS: Ht 175.3 cm; Wt 55.5 kg
[~2017-05-23 16:22] MED LIST changes: +ONDA4TAB9 PO
[2017-05-23 16:32] VITALS: BP 127/70; PULSE 102; RESP 28; O2SAT 99
[2017-05-23] MEDS ORDERED: Ondansetron 2 mg/mL 2 mL Inj ONE (16:35)
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
[2017-05-23] MEDS ORDERED: 0.9% Sodium Chloride 1,000 ML IV ONE (18:19)
--- NOTE | 2017-05-23 18:43 | DRSVH ---
PROCEDURE: CT BRAIN WITHOUT CONTRAST ([id number]) INDICATIONS: 36 year-old female with recent seizures, and history of stroke. TECHNIQUE: Noncontrast 4.5 mm thick angled axial sections acquired from the foramen magnum to the vertex, with c oronal reformats. COMPARISON: [facility], CT, CT BRAIN WO CON, 01/26/2017, 19:05. [facility], CT, BRAIN ([facility]), 01/22/2017, 11:36. [facility], CT, CT BRAIN WO CON, 08/18/2016, 14:01. FINDINGS: Image quality: Excellent. CSF spaces: Basal cisterns are patent. No extra-axial fluid collections. Ventricles are normal in size and shape. Brain: No midline shift. No intracranial masses or hemorrhage. Harper-white matter interface is norm al. Non-acute bilateral thalamic infarcts are again noted. Skull and face: Calvarium and visualized facial bones are intact, without suspicious lesions. Sinuses: Visualized sinuses and mastoids are clear. IMPRESSION: No acute intracranial abnormalities. Non-acute bilateral thalamic infarcts as before. Dictated by: Edward Gotti M.D. on 05/23/2017 at 18:34 Approved by: Edward Gotti M.D. on 05/23/2017 at 18:41
[2017-05-23 18:44] LABS: BASOPHILS % (AUTO) 0.4 % (0-3); EOSINOPHILS % (AUTO) 0.9 % (0-5); MONOCYTES % (AUTO) 8.1 % (4-12); Mean Corpuscular Hemoglobin 29.7 pg (27.0-35.0); Mean Corpuscular Volume 91.3 fL (81-100); NEUTROPHILS % (AUTO) 50.8 % (40-74); Platelet Count 248 bil/L (150-400)
[2017-05-23 18:45] VITALS: BP 112/63; PULSE 87; RESP 22; O2SAT 98
--- NOTE | 2017-05-23 18:47 | DRSVH ---
PROCEDURE: X-RAY CHEST ONE VIEW, PORTABLE ([id number]) INDICATIONS: 36 year-old female with seizures, and history of cerebrovascular accident. TECHNIQUE: One view of the chest was acquired. COMPARISON: [facility], CR, XR CHEST 1VW (PORTABLE), 01/22/2017, 11:44. [facility], CR, XR CHEST 1VW (PORTABLE), 09/05/2016, 17:25. [facility], CR, XR CHEST 1VW (PO RTABLE), 08/18/2016, 12:55. FINDINGS: Surgical changes and devices: None. Lungs and pleura: No pleural effusions or pneumothorax. Lungs are clear. Mediastinum: Mediastinal contours appear normal. Heart size is normal. Bones and chest wall: No suspicious bony lesions. Overlying soft tissues appear unremarkable. IMPRESSION: No acute cardiopulmonary disease. Dictated by: Edward Gotti M.D. on 05/23/2017 at 18:45 Approved by: Edward Gotti M.D. on 05/23/2017 at 18:46
[2017-05-23 19:13] LABS: INR 0.98 ratio
[2017-05-23 20:56] VITALS: BP 124/72; PULSE 88; RESP 18; O2SAT 98
== END 2017-05-23 20:57 | disposition home or self-care (01) ==
LOC: SED 16:22
DX: R56.9 Unspecified convulsions (principal); I48.91 Unspecified atrial fibrillation; Z88.8 Allergy status to other drugs, medicaments and biological substances; Z91.048 Other nonmedicinal substance allergy status
CPT/HCPCS: 36415; 70450; 71010; 80053; 84703; 85025; 85610; 93005; 96361; 96374; 99285; G0480; J2405; J7030